=== PATIENT | male | born 1995 | race African-American/Black ===

== ENCOUNTER 2023-04-07 00:58 | Emergency (ER) | payer MEDICAID ==
[~2023-04-07] VITALS: Ht 172.7 cm; Wt 69.2 kg
[2023-04-07 01:17] VITALS: TEMP 98.5; O2SAT 97
[2023-04-07] MEDS ORDERED: PHEN51CR24 TP (01:45)
[2023-04-07] MEDS ORDERED: POLY17PO3 MT (01:45)
[2023-04-07] MEDS ORDERED: HYDR26CR2 TP (01:45)
[2023-04-07] MEDS ORDERED: IBUP-2028 MT (01:45)
[2023-04-07] MEDS ORDERED: ACET-2708 MT (01:45)
[2023-04-07] MEDS ORDERED: DOCU-150 MT (01:45)
[2023-04-07 04:13] VITALS: BP 119/70; PULSE 57; RESP 18
== END 2023-04-07 02:25 | disposition home or self-care (01) ==
LOC: ER 00:58
DX: K62.89 Other specified diseases of anus and rectum (principal)
CPT/HCPCS: 99281; 99282